=== PATIENT | female | born 1990 | race Caucasian/White ===

== ENCOUNTER 2022-08-05 16:30 | Inpatient (IN) | payer OTHER ==
[2022-08-05] VITALS (8 sets, daily range): BP systolic 106–139; BP diastolic 56–75
[~2022-08-05] VITALS: Ht 162.6 cm; Wt 74.1 kg
[2022-08-05] MEDS ORDERED: PRENTAB9 PO (17:00)
[2022-08-05] MEDS ORDERED: ACET500P3 PO (17:00)
[2022-08-05] MEDS ORDERED: ZINC220CA PO (17:01)
[2022-08-05] MEDS ORDERED: IRON65TA2 PO (17:02)
[2022-08-05] MEDS ORDERED: VITA100065 PO (17:04)
[2022-08-05] MEDS ORDERED: LACTATED RINGER'S 1000 ML IV STA (17:41)
[2022-08-05] MEDS ORDERED: CARBOPROST TROMETHAMINE 250 MCG/ML AMP IM PRN (17:45)
[2022-08-05] MEDS ORDERED: TRANEXAMIC ACID INJection 1,000 MG in NS 100 ML IV PRN (17:45)
[2022-08-05] MEDS ORDERED: OXYTOCIN INJ 10 UNITS/ML VIAL (J2590) IV PRN (17:45)
[2022-08-05] MEDS ORDERED: OXYTOCIN DRIP 30 UNITS in IV 1 EA IV PRN ×6 (17:45)
[2022-08-05] MEDS ORDERED: OXYTOCIN DRIP 30 UNITS in IV 1 EA IV SCH (17:45)
[2022-08-05] MEDS ORDERED: OXYTOCIN INJ 10 UNITS/ML VIAL (J2590) IM PRN (17:45)
[2022-08-05] MEDS ORDERED: METHYLERGONOVINE MALEATE 0.2 MG/ML VIAL (J2210) IM PRN (17:45)
[2022-08-05] MEDS ORDERED: LIDOCAINE 1% MDV 20ML VIAL INFIL PRN (17:45)
[2022-08-05 18:21] LABS: HEMATOCRIT 33.1 % (36.0-47.0); MEAN CORPUSCULAR HEMOGLOBIN 28.9 pg (27.0-33.0); MEAN CORPUSCULAR HGB CONC 33.2 g/dl (32.0-36.5); MEAN CORPUSCULAR VOLUME 86.9 fl (80.0-96.0); PLATELET COUNT, AUTOMATED 192 10^3/uL (150-450); RED BLOOD COUNT 3.81 10^6/uL (4.00-5.40); WHITE BLOOD COUNT 7.8 10^3/uL (4.0-10.0)
[2022-08-05] MEDS: miSOPROStol 50MCG 1/2 TABLET PO PRN ×2 (18:26→22:46)
[2022-08-06] VITALS (66 sets, daily range): BP systolic 96–136; BP diastolic 51–88
[2022-08-06] MEDS: miSOPROStol 50MCG 1/2 TABLET PO PRN (03:06)
[2022-08-06] MEDS ORDERED: PROMETHAZINE 25MG/ML 1ML VIAL IV STA (04:29)
[2022-08-06] MEDS ORDERED: BUTORPHANOL 2 MG/ML INJ (J0595) IV STA (04:29)
[2022-08-06] MEDS: LR 1,000 ML IV SCH ×3 (04:44→19:04)
[2022-08-06] MEDS ORDERED: diphenhydrAMINE 50MG/ML VIAL (J1200) IV PRN (17:00)
[2022-08-06] MEDS ORDERED: EPIDURAL/PCA KEYS XX PRN (17:00)
[2022-08-06] MEDS ORDERED: LR 500 ML IV PRN (17:00)
[2022-08-06] MEDS ORDERED: ePHEDrine SULFATE 25 MG/5 ML(5MG/ML) SYRINGE IVP PRN (17:00)
[2022-08-06] MEDS ORDERED: NALOXONE INJ 0.4MG/1ML VIAL (J2310 PER 1MG) IV PRN (17:00)
[2022-08-06] MEDS ORDERED: ONDANSETRON 4MG 2ML VIAL IV PRN (17:00)
[2022-08-06] MEDS: FENTANYL/ROPIVACAINE/NACL BAG 100 ML EPIDURAL SCH ×2 (17:37→22:41)
[2022-08-06] MEDS ORDERED: OXYTOCIN INJ 10 UNITS/ML VIAL (J2590) IV ONE (18:20)
[2022-08-07] VITALS (17 sets, daily range): BP systolic 112–138; BP diastolic 66–89
[2022-08-07 01:53] LABS: CORD GAS ABE A -4.7; CORD GAS HCO3 A 23.9 MEQ/L; CORD GAS O2 SAT A 34.3 %; CORD GAS PCO2 A 57.7 mmHg; CORD GAS PH A 7.235 UNITS; CORD GAS PO2 A 17.8 mmHg; CORD GAS SBC A 19.1 MEQ/L; CORD GAS TCO2 A 25.7 MEQ/L
[2022-08-07 01:55] LABS: CORD GAS ABE V -3.5; CORD GAS O2 SAT V 69.1 %; CORD GAS PCO2 V 36.7 mmHg; CORD GAS PH V 7.375 UNITS; CORD GAS PO2 V 27.6 mmHg; CORD GAS SBC V 20.8 MEQ/L; CORD GAS TCO2 V 22.1 MEQ/L
[2022-08-07] MEDS ORDERED: DOCUSATE SODIUM 100MG CAPSULE PO PRN (02:10)
[2022-08-07] MEDS ORDERED: METHYLERGONOVINE MALEATE 0.2 MG TAB PO PRN (02:10)
[2022-08-07] MEDS ORDERED: MOM 30ML SUSPENSION UDC PO PRN (02:10)
[2022-08-07] MEDS ORDERED: OXYTOCIN DRIP 30 UNITS in IV 1 EA IV ONE (02:10)
[2022-08-07] MEDS ORDERED: OXYTOCIN DRIP 30 UNITS in IV 1 EA IV SCH (02:10)
[2022-08-07] MEDS ORDERED: ACETAMINOPHEN TAB 650MG DOSE (2X325MG) PO PRN (02:10)
[2022-08-07] MEDS ORDERED: OXYTOCIN INJ 10 UNITS/ML VIAL (J2590) IV ONE (02:10)
[2022-08-07] MEDS ORDERED: ANUSOL HC CREAM 30GM TOP PRN (02:10)
[2022-08-07] MEDS ORDERED: RHOGAM 300 MCG (1500 IU) INJ (J2790) IM SCH (02:10)
[2022-08-07] MEDS ORDERED: LR 1,000 ML IV SCH (02:10)
[2022-08-07] MEDS ORDERED: METHYLERGONOVINE MALEATE 0.2 MG/ML VIAL (J2210) IM PRN (02:10)
[2022-08-07] MEDS: ACETAMINOPHEN 500 MG TAB PO PRN ×2 (03:27→15:18)
[2022-08-07] MEDS: IBUPROFEN 600MG TAB PO PRN ×3 (05:13→20:44)
[2022-08-07] MEDS: DIBUCAINE 1% OINTMENT 30GM TOP PRN ×2 (05:14→22:01)
[2022-08-07] MEDS: PRENATAL VITAMINS CHEWABLE TABLET PO SCH (09:15)
[2022-08-08 06:00] VITALS: BP 124/25
[2022-08-08] MEDS ORDERED: ACET1TAB55 PO (06:10)
[2022-08-08] MEDS ORDERED: COLA100C5 PO (06:10)
[2022-08-08] MEDS ORDERED: IBUP-1022 PO (06:10)
[2022-08-08 08:04] LABS: HEMATOCRIT 29.3 % (36.0-47.0); HEMOGLOBIN 9.5 g/dl (12.0-15.5); MEAN CORPUSCULAR HEMOGLOBIN 28.9 pg (27.0-33.0); MEAN CORPUSCULAR HGB CONC 32.4 g/dl (32.0-36.5); MEAN CORPUSCULAR VOLUME 89.1 fl (80.0-96.0); PLATELET COUNT, AUTOMATED 157 10^3/uL (150-450); RED BLOOD COUNT 3.29 10^6/uL (4.00-5.40)
[2022-08-08] MEDS: PRENATAL VITAMINS CHEWABLE TABLET PO SCH (08:47)
[2022-08-09] MEDS ORDERED: MEASLES,MUMPS,RUBELLA VACCINE INJ (MMR-II) (90707) SC.IMMUN ONE (09:00)
== END 2022-08-08 10:55 | disposition home or self-care (01) | DRG 807 ==
LOC: M LDI 16:30 → M OBS 08-07 04:47
PROVIDERS: ADMIT Obstetrics & Gynecology; ATTEND Obstetrics & Gynecology
PROC: 3E0DXGC Introduction of Other Therapeutic Substance into Mouth and Pharynx, External Approach (ICD-10-PCS; 2022-08-05)
PROC: 10E0XZZ Delivery of Products of Conception, External Approach (ICD-10-PCS; principal; 2022-08-07)
PROC: 0HQ9XZZ Repair Perineum Skin, External Approach (ICD-10-PCS; 2022-08-07)
DX: O48.0 Post-term pregnancy (principal); Z37.0 Single live birth; Z3A.41 41 weeks gestation of pregnancy; O69.82X0 Labor and delivery complicated by other cord entanglement, without compression, not applicable or unspecified; I86.8 Varicose veins of other specified sites; O22.13 Genital varices in pregnancy, third trimester

== ENCOUNTER → 2023-12-05 | Outpatient (CLI) | payer OTHER ==
[~2023-12-05] MED LIST: ACET1TAB55 PO; ACET500P3 PO; COLA100C5 PO; IBUP-1022 PO; IRON65TA2 PO; PRENTAB9 PO; VITA100065 PO; ZINC220CA PO
== END ==
LOC: M EKG 08:20
PROVIDERS: ATTEND Family Medicine
DX: R00.2 Palpitations (principal)

== ENCOUNTER 2024-04-18 20:33 | Emergency (ER) | payer OTHER ==
[~2024-04-18] VITALS: Ht 160 cm; Wt 59.4 kg
[2024-04-19 01:52] LABS: BASO % 0.6 % (0.0-1.0); EOS # 0.1 10^3/uL (0.0-0.5); EOS % 1.2 % (0.0-3.0); HEMATOCRIT 35.8 % (36.0-47.0); HEMOGLOBIN 11.8 g/dl (12.0-15.5); LYMPH # 3.1 10^3/uL (1.5-5.0); MEAN CORPUSCULAR HEMOGLOBIN 29.4 pg (27.0-33.0); MEAN CORPUSCULAR VOLUME 89.3 fl (80.0-96.0); MONO # 0.6 10^3/uL (0.0-0.8); MONO % 8.1 % (2.0-8.0); NEUTROPHILS # 3.1 10^3/uL (1.5-8.5); PLATELET COUNT, AUTOMATED 237 10^3/uL (150-450); RED BLOOD COUNT 4.01 10^6/uL (4.00-5.40); WHITE BLOOD COUNT 6.8 10^3/uL (4.0-10.0)
[2024-04-19 02:08] VITALS: BP 106/57; TEMP 98; O2SAT 99
[2024-04-19 02:14] LABS: CK-MB VALUE MASS < 1.0 NG/ML (<3.6)
[2024-04-19 02:16] LABS: CPK CREATINE PHOSPHOKINASE 69 U/L (34-145); MB/CK RELATIVE INDEX 1.44 (< OR =4)
[2024-04-19 02:18] LABS: THYROID STIMULATING HORMONE 4.426 uIU/ML (0.55-4.78)
[2024-04-19 02:19] LABS: FREE T4 1.06 NG/DL (0.89-1.76)
== END 2024-04-19 02:47 | disposition home or self-care (01) ==
LOC: M ED 20:33
DX: R07.9 Chest pain, unspecified (principal); F41.9 Anxiety disorder, unspecified; F32.A Depression, unspecified; Z79.1 Long term (current) use of non-steroidal anti-inflammatories (NSAID); Z79.899 Other long term (current) drug therapy